=== PATIENT | female | born 1970 | race Caucasian/White ===

== ENCOUNTER → 2016-06-15 | Outpatient (CLI) | payer BC ==
[~2016-06-15] MED LIST: ACET325T95 PO; CLC100 PO; HYDR-3419 PO; LEVO50TA6 PO; LPR25 PO; NAPR-1169 PO; NRN100 PO; PANT40TA PO; PRLSR20 PO; RANI300T2 PO
--- NOTE | 2016-06-18 14:27 | MAMMOGRAPHY REPORT ---
BILATERAL DIGITAL SCREENING MAMMOGRAM TOMOSYNTHESIS WITH CAD: 06/15/2016 CLINICAL HISTORY: Routine screening. Patient has no complaints. TECHNIQUE: Breast tomosynthesis in addition to standard 2D mammography was performed. Current study was also evaluated with a Computer Aided Detection (CAD) system. COMPARISON: Comparison is made to exam dated: 05/18/2004 mammogram - [facility]. BREAST COMPOSITION: There are scattered areas of fibroglandular density in both breasts. FINDINGS: There is a 6 mm focal asymmetry seen within the left upper inner quadrant posteriorly, wh ich likely represents normal fibroglandular tissue, however, spot compression tomosynthesis views an d possible breast ultrasound are recommended for further evaluation. The remainder of both breasts demonstrate no suspicious masses, calcifications, or areas of architec tural distortion. IMPRESSION: ACR BI-RADS CATEGORY 0: INCOMPLETE EVALUATION: NEED ADDITIONAL IMAGING EVALUATION Left breast focal asymmetry, for which additional imaging evaluation is recommended. The patient wi ll be called to schedule an appointment. Approximately 10% of breast cancers are not detected with mammography. A negative mammographic repor t should not delay biopsy if a clinically suggestive mass is present. Valorie Justice M.D. /:06/15/2016 16:39:31 Front Office Associate: Mei Gómez, [facility] letter sent: Addl Imaging 0 BI-RADS Code: ACR BI-RADS Category 0: Incomplete Evaluation: Need Additional Imaging Evaluation
== END | disposition home or self-care (01) ==
LOC: C.MAMM 07:16
PROVIDERS: ATTEND Internal Medicine
DX: Z12.31 Encounter for screening mammogram for malignant neoplasm of breast (principal); R92.8 Other abnormal and inconclusive findings on diagnostic imaging of breast

== ENCOUNTER → 2016-06-28 | Outpatient (CLI) | payer BC ==
--- NOTE | 2016-06-28 15:07 | MAMMOGRAPHY REPORT ---
UNILATERAL LEFT DIGITAL DIAGNOSTIC MAMMOGRAM TOMOSYNTHESIS AND TARGETED LEFT ULTRASOUND: 06/28/2016 CLINICAL HISTORY: Callback from screening mammogram for left breast asymmetry. TECHNIQUE: Breast tomosynthesis in addition to standard 2D mammography was performed. Spot kristin berna left CC, MLO, and ML 2-D and tomosynthesis images were obtained. COMPARISON: Comparison is made to exams dated: 06/15/2016 mammogram and 05/18/2004 mammogram - [facility]. BREAST COMPOSITION: There are scattered areas of fibroglandular density in the left breast. FINDINGS: The previously described focal asymmetry seen within the left superior posterior breast a t approximately 11 to 12:00 partially effaces on the spot compression views, and has the appearance of normal fibroglandular tissue on the tomosynthesis images. No discrete mass or architectural dist ortion is noted on the tomosynthesis images. Targeted ultrasound was performed of the area of the mammographic asymmetry in the left 11 to 12:00 breast. No suspicious masses or other suspicious sonographic abnormalities are evident. No correla te for the asymmetry is seen. Incidentally noted in the left 11:00 periareolar region is an oval an echoic benign simple cyst which measures 4 x 4 mm. IMPRESSION: ACR-BI-RADS CATEGORY 3: PROBABLY BENIGN, TARGETED ULTRASOUND ACR-BI-RADS CATEGORY 3: AL OBABLY BENIGN Focal asymmetry in the left 11 to 12:00 breast is less prominent on the additional views, without co rresponding sonographic abnormality evident. The asymmetry is probably benign and likely represents an island of normal fibroglandular tissue. Recommend follow-up diagnostic tomosynthesis mammograms of the left breast and possible ultrasound in 6 months to confirm stability. The patient has been verbally notified of the results. Approximately 10% of breast cancers are not detected with mammography. A negative mammographic repor t should not delay biopsy if a clinically suggestive mass is present. Valorie Justice M.D. /:06/28/2016 08:30:54 Product Safety Tester: Mei Gómez, [facility] letter sent: Follow Up Recommended 3 BI-RADS Code: ACR-BI-RADS Category 3: Probably Benign Ultrasound BI-RADS: ACR-BI-RADS Category 3: P robably Benign
== END | disposition home or self-care (01) ==
LOC: C.MAMM 08:04
PROVIDERS: ATTEND Internal Medicine
DX: N64.89 Other specified disorders of breast (principal)

== ENCOUNTER → 2016-08-01 | Outpatient (CLI) | payer BC ==
--- NOTE | 2016-08-01 14:01 | DIAGNOSTIC IMAGING REPORT ---
CHEST CT WITHOUT CONTRAST CT DOSE: 191.29 mGycm HISTORY: Pulmonary nodule. Follow-up. TECHNIQUE: Multiaxial CT images of the chest were performed without contrast. COMPARISON: Chest CT 02/28/2015. Chest CT 05/03/2014. FINDINGS: Continued increase in size in the 11 x 8 mm nodule within the left upper lobe. This previous measured 9 x 6 mm. Emphysema. No pneumothorax or pleural effusions. Stable 3 mm nodule within the left lower lobe on image 159. Therefore, this is likely benign. The central airways are patent. No suspicious lytic or blastic osseous lesions. The liver, spleen, and visualized adrenal glands are unremarkable. Normal caliber thoracic aorta. No mediastinal or hilar lymphadenopathy. The heart is normal in size. IMPRESSION: 1. Continued increase in size in the 11 x 8 mm left upper lobe nodule. Therefore, this is consistent with a neoplasm until proven otherwise. 2. Emphysema. Electronically signed by: Mike Escalante M.D. 08/01/2016 2:00 PM Dictated Date/Time: 08/01/2016 1:53 PM
== END | disposition home or self-care (01) ==
LOC: C.CTS 13:40
PROVIDERS: ATTEND Internal Medicine Pulmonary Disease
DX: R91.1 Solitary pulmonary nodule (principal); J43.9 Emphysema, unspecified

== ENCOUNTER → 2016-08-22 | Outpatient (CLI) | payer BC ==
--- NOTE | 2016-08-22 10:00 | DIAGNOSTIC IMAGING REPORT ---
PET/CT HISTORY: PULMONARY NODULE TECHNIQUE: PET/CT was performed from the base of the skull through the pelvis following the intravenous administration of 15.3 mCi of F18-FDG. Non-contrast CT imaging was performed over the same range without breath-hold for attenuation correction of PET images and anatomic correlation, but not for primary interpretation as it is not of standard diagnostic quality. CT DOSE: COMPARISON: Chest CT 08/01/2016. FINDINGS: HEAD AND NECK: There is no FDG-avid disease or significant lymphadenopathy in the imaged portions of the head and the neck. CHEST: Emphysema. There is again noted and 11 x 8 mm nodule within the left upper lobe/lingula. This is not demonstrate abnormal FDG uptake. No FDG avid or enlarged mediastinal or hilar lymph nodes. No pleural fusions. ABDOMEN/PELVIS: Below the diaphragm, tracer is distributed physiologically in the gastrointestinal and genitourinary tracts. There is no significant lymphadenopathy and no FDG-avid disease. MUSCULOSKELETAL: There is no FDG-avid or destructive bone lesion. IMPRESSION: An 11 x 8 mm nodule within the left upper lobe/lingula. This does not demonstrate abnormal FDG uptake. However, a low-grade neoplasm cannot be entirely excluded. Electronically signed by: Mike Escalante M.D. 08/22/2016 9:58 AM Dictated Date/Time: 08/22/2016 9:46 AM
== END | disposition home or self-care (01) ==
LOC: C.PET 07:12
PROVIDERS: ATTEND Internal Medicine Pulmonary Disease
DX: R91.1 Solitary pulmonary nodule (principal); J43.9 Emphysema, unspecified

== ENCOUNTER → 2016-08-28 | Outpatient (CLI) | payer BC ==
[2016-08-28 11:01] LABS: ARTERIAL BLD GAS O2 SATURATION 96.7 % (90-95); ARTERIAL BLOOD GAS BASE EXCESS 0.4 mEq/L (-9-1.8); ARTERIAL BLOOD GAS HCO3 23 mmol/L (19-24); ARTERIAL BLOOD GAS PO2 85 mm/Hg (80-95); ARTERIAL BLOOD GAS pH 7.48 (7.35-7.45)
[2016-08-28 11:04] LABS: ALLEN TEST POS (POS); O2 ADMINISTRATION ROOM AIR
[2016-08-28 11:30] LABS: THYROID STIMULATING HORMONE 3.93 uIu/ml (0.300-4.500)
== END | disposition home or self-care (01) ==
LOC: C.LAB 10:05
PROVIDERS: ATTEND Internal Medicine Pulmonary Disease
DX: E03.9 Hypothyroidism, unspecified (principal); J34.2 Deviated nasal septum

== ENCOUNTER → 2016-09-03 | Outpatient (CLI) | payer BC ==
[2016-09-03 13:40] LABS: BASO ABS # 0.08 K/uL (0-0.2); COMPLETE YES; EOS % 0.8 %; HEMATOCRIT 39.2 % (37-47); IG% 0.2 %; LYMPH ABS # 2.34 K/uL (1.2-3.4); MEAN CELL VOLUME 80.2 fL (80-100); MEAN CORPUSCULAR HEMOGLOBIN 27.4 pg (25-34); MEAN CORPUSCULAR HGB CONC 34.2 g/dl (32-36); MEAN PLATELET VOLUME 8.8 fL (7.4-10.4); MONO % 6.3 %; NEUT % 63.7 %; PLATELET COUNT 306 K/uL (130-400); RED BLOOD COUNT 4.89 M/uL (4.2-5.4); WHITE BLOOD COUNT 8.35 K/uL (4.8-10.8)
[2016-09-03 14:11] LABS: BLOOD UREA NITROGEN 6 mg/dl (7-18); BUN/CREATININE RATIO 6.9 (10-20); CARBON DIOXIDE 26 mmol/L (21-32); CHLORIDE 106 mmol/L (98-107); CREATININE 0.85 mg/dl (0.60-1.20); GLUCOSE 83 mg/dl (70-99); POTASSIUM 3.7 mmol/L (3.5-5.1); SODIUM 141 mmol/L (136-145)
== END | disposition home or self-care (01) ==
LOC: C.LAB 12:17
PROVIDERS: ATTEND Surgery
DX: C34.90 Malignant neoplasm of unspecified part of unspecified bronchus or lung (principal)

== ENCOUNTER 2016-10-03 05:14 | Inpatient (IN) | payer BC ==
[2016-09-11 15:10] VITALS: BMI 27.0
[~2016-10-03] VITALS: Ht 152.4 cm; Wt 63.2 kg
[2016-10-03] VITALS (10 sets, daily range): BP systolic 147–162; BP diastolic 95–105; PULSE 69–104; TEMP 36.6–37; O2SAT 93–99; Ht 152.4 cm; Wt 63.2 kg
[~2016-10-03 05:14] MED LIST changes: -ACET325T95 PO; -CLC100 PO; -HYDR-3419 PO; -LPR25 PO; -NRN100 PO; -PRLSR20 PO
[2016-10-03] MEDS ORDERED: LACTATED RINGER'S 1000ML 1,000 ML IV SCH (06:00)
[2016-10-03] MEDS ORDERED: FENTANYL CITRATE INJ 50 MCG/1 ML 2 ML VIAL ONE ×4 (07:01→11:41)
[2016-10-03] MEDS ORDERED: SODIUM CHLORIDE 0.9% PF 50 ML VIAL ONE (07:02)
[2016-10-03] MEDS ORDERED: KETAMINE HCL INJ 50 MG/ML 10 ML VIAL ONE (07:02)
[2016-10-03] MEDS ORDERED: MIDAZOLAM HCL 1 MG/ML 2ML VIAL ONE (07:02)
[2016-10-03] MEDS ORDERED: BUPIVACAINE LIPOSOME 1/3% 266 MG/20 ML VIAL INFIL ONE (07:03)
--- NOTE | 2016-10-03 07:08 | History & Physical Bridge Note ---
H&P Re-Evaluation Bridge Note: I have examined the patient, reviewed the History & Physical and in the interval since the performance of the History & Physical I have noted the following changes of clinical significance: No changes noted
[2016-10-03] MEDS ORDERED: ROCURONIUM BROMIDE 10 MG/ML 5 ML VIAL ONE (08:28)
[2016-10-03] MEDS ORDERED: CEFAZOLIN SOD 1 GM VIAL ONE (08:28)
[2016-10-03] MEDS ORDERED: PROPOFOL IV EMULSION 10 MG/ML 20 ML VIAL IV ONE (08:28)
[2016-10-03] MEDS ORDERED: HYDROmorphone INJ 1 MG/ML SYR IV PRN (08:30)
[2016-10-03] MEDS ORDERED: ATROPINE SULFATE 0.1 MG/ML 5ML SYR IV PRN (08:30)
[2016-10-03] MEDS ORDERED: ONDANSETRON INJ 2 MG/ML 2 ML VIAL IV PRN ×2 (08:30→12:00)
[2016-10-03] MEDS ORDERED: EpHEDrine SULFATE INJ 50 MG/ML AMP IV PRN (08:30)
[2016-10-03] MEDS ORDERED: FENTANYL CITRATE INJ 50 MCG/1 ML 2 ML VIAL IV PRN (08:30)
[2016-10-03] MEDS ORDERED: FLOSEAL HEMOSTATIC MATRIX 10ML TOP ONE (11:37)
[2016-10-03] MEDS ORDERED: GLYCOPYRROLATE INJ 0.2 MG/ML VIAL ONE ×2 (11:39→11:44)
[2016-10-03] MEDS ORDERED: NEOSTIGMINE METHYLSULFATE 5 MG/5 ML SYR ONE (11:39)
[2016-10-03] MEDS ORDERED: ONDANSETRON INJ 2 MG/ML 2 ML VIAL ONE (11:39)
[2016-10-03] MEDS ORDERED: EpHEDrine SULFATE INJ 50 MG/ML AMP ONE (11:39)
[2016-10-03] MEDS ORDERED: DEXAMETHASONE SOD INJ 4 MG/ML VIAL ONE (11:39)
[2016-10-03] MEDS ORDERED: LABETALOL HCL IV 5 MG/ML 20ML IV ONE (11:42)
--- NOTE | 2016-10-03 12:19 | DIAGNOSTIC IMAGING REPORT ---
CHEST ONE VIEW PORTABLE CLINICAL HISTORY: CHERELLE postoperative evaluation COMPARISON STUDY: 05/20/2014. CT chest dated 08/01/2016 FINDINGS: Operative changes consistent with resection of the left upper lung nodular density. Left-sided chest tube in position. No significant postprocedural pneumothorax. Atelectasis right base. Mild stable cardia megaly. IMPRESSION: 1. Interval left upper lobe resection with no significant postprocedural pneumothorax. 2. Atelectasis right base. Electronically signed by: Howie Courtney M.D. 10/03/2016 12:18 PM Dictated Date/Time: 10/03/2016 12:16 PM
--- NOTE | 2016-10-03 12:41 | Anesthesiology Progress Note ---
Anesthesia Post Op Note Date & Time Oct 03, 2016 at 12:40 Vital Signs Pain Intensity: 0 Vital Signs Past 12 Hours Date Time Temp Pulse Resp B/P (MAP) Pulse Ox O2 Delivery O2 Flow Rate FiO2 10/03/16 12:35 78 18 107/75 92 Oxymask 3 10/03/16 12:25 82 18 104/79 96 Oxymask 10 10/03/16 12:15 77 18 170/98 96 Oxymask 15 10/03/16 12:05 73 18 178/106 93 Oxymask 15 10/03/16 11:58 36.1 70 18 178/108 93 Oxymask 15 10/03/16 05:44 36.6 76 18 155/95 (115) 95 Room Air Notes Mental Status: alert / awake / arousable, participated in evaluation Pt Amnestic to Procedure: Yes Nausea / Vomiting: adequately controlled Pain: adequately controlled Airway Patency, RR, SpO2: stable & adequate BP & HR: stable & adequate Hydration State: stable & adequate Anesthetic Complications: no major complications apparent
[2016-10-03] MEDS ORDERED: ACETAMINOPHEN 1000 MG/100 ML IV IV ONE ×2 (12:44→12:45)
--- NOTE | 2016-10-03 13:13 | [facility] Operative Report ---
Operative Report Date of Service Oct 03, 2016. Operative Report Preoperative diagnosis: Left upper lobe nodule in a patient with a history of cigarette smoking Postoperative diagnosis: Hamartoma left upper lobe Procedure: Robotic left upper lobectomy Mediastinal lymph node sampling Surgeon: Zan Arzate M.D. [employer] surgeon: Mich SHAFFER Procedure: This a 46-year-old smoker who had a small nodule in her left upper lobe. It was solid. It had grown minimally. I long talk with the patient and her in the office earlier this month. I've explained the only way we could tell this was not a cancer pressure be to remove it given to the pathologist. Having said that I hope to do a wedge resection however it was between the left upper lobe and lingula and a segmentectomy would not have sufficed. In addition was not in an area that was good for wedge resection. I discussed this in detail. Her lung function was excellent. I stated we may proceed directly with a lobectomy depending on what we found. On 10/03/2016 I took the patient operating room and an uncomplicated robotic- assisted thoracoscopic left upper lobectomy. I had difficulty finding this nodule and again it was not any good area for wedge resection. This reason I proceeded with a left upper lobectomy which appeared to be rather straightforward. Frozen section showed this to be a hamartoma. She had negligible blood loss. She was extubated in the room. She tolerated very well. Details of procedure: Patient was brought to operating room and laid in supine position. Gen. anesthesia was induced and endotracheal intubation was performed a double-lumen tube. After placing the patient in the right lateral decubitus position and calling appropriate timeout administering antibiotics patient was prepped and draped in usual sterile fashion. 5 different port sites were placed in the eighth interspace started posteriorly and working anteriorly. Upon entering the pleural cavity insufflating carbon dioxide to be seen there were very little adhesions although the left upper lobe was adhesed to the chest wall which was easily taken down with cautery. Then attempted to palpate this mass but it was small and within the lobe itself. It appeared to be rather straightforward lobe I elected to proceed with a lobectomy. Attention was turned posteriorly and I dissected out the posterior fissure and then the posterior mediastinum. A level X node was biopsied. The artery was dissected free and I then was able to complete the fissure posteriorly. This brought us down to the continuation pulmonary artery and I saw the lingula and additional branches more proximally. Upon turning to the anterior fissure there was a a parent arterial supply. The artery to the lower lobe had 2 branches that went to the lingula. I carefully dissected this off and was able to staple these 2 small branches. This and the anterior fissure nicely and after taking this down further I came upon the lingual branch of the artery. Then dissected out the level X and level V areas as well as multiple level XI and level XII nodes. After dissecting out the artery to the left upper lobe including the lingular branch attention was turned back towards the arteries. Endo JERARDO stapler was used to fire across the lingular branch as well as the more proximal branches. This left only apical anterior branch and by pulling the lobe posteriorly and inferiorly was able to dissect this out quite nicely with the robot in fire Endo JERARDO stapler. Attention was then turned towards the vein anteriorly entrain the upper lobe. After getting around this with a vessel loop retracting upward Endo JERARDO stapler was fired across this. This left only the bronchus. Lymph nodes were swept up with an Endo JERARDO stapler was fired across this. Attention was then turned towards the posterior thoracic cavity and 266 mg of X Oanh mix with 50 mL of normal saline sorry 60 mL of normal saline and used anesthetize second to 11th rib by performing a rib block. This was done intrathoracic. The Endobag was then delivered through the assistant shift supervisor port and the left upper lobe was placed in this bag. The Endobag was then removed and I had to open the assistant shift supervisor's port up another's 2 cm or so to get this mass out. It was sent to the lab. Chest shows normal saline really wasn't much of an air leak. Blood loss. 24 Slovak chest tube was placed through the camera port and directed towards the apex. It was sutured in place with heavy silk suture. The deeper muscle layers of all ports were closed with 0 Vicryl and 4 Monocryl suture in a running subcutaneous fashion approximating the skin edges. Patient was seen have very little in the way of an air leak. She tolerated the procedure very well was extubated in the room. She transported to postanesthesia care unit in stable condition. I attest to the content of the Intraoperative Record and any orders documented therein. Any exceptions are noted below.
[2016-10-03] MEDS: D5W AND 1/2NSS 1,000 ML IV SCH ×2 (13:15→21:17)
[2016-10-03] MEDS ORDERED: PNEUMOCOCCAL ADMINISTRATION CHARGE ONE (13:45)
[2016-10-03] MEDS ORDERED: PNEUMOCOCCAL POLYSACCHARIDES 25 MCG/0.5 ML VIAL/SYR IM. ONE (13:45)
[2016-10-03] MEDS: METOCLOPRAMIDE HCL INJ 5 MG/ML 2 ML VIAL IV. SCH ×2 (14:26→21:11)
[2016-10-03] MEDS: KETOROLAC TROMETHAMINE 15 MG/ML VIAL IV. SCH ×2 (14:26→21:11)
[2016-10-03] MEDS ORDERED: ARTIFICIAL TEARS OP OINT 3.5 GM TUBE OPR PRN (15:15)
--- NOTE | 2016-10-03 15:24 | Anesthesiology Progress Note ---
Anesthesia Progress Note Date of Service Oct 03, 2016. Progress Notes Was called by patient's floor nurse as patient c/o right eye "scratch". I went to patient's bedside and she stated she had right eye pain that was described as feeling as if her eye had been scratched. I examined the eye and it was mildly red in corner of eye but no other abnormalities were noted. She denied any vision changes and said the pain was not severe. Patient did not endorse this eye pain in PACU but noticed it when she was more awake on the floor. I explained this could either be an abrasion or drying injury and they usually heal in 24-72 hours timeframe. At this point, I wrote for TID erythromycin ointment to be placed in her right eye along with refresh eye drops. Anesthesia provider will f/u with patient tomorrow as well and both patient and her family members informed to contact nurse if she noted any worsening eye pain, vision problems or other concerning symptoms. If pain is not improved by tomorrow afternoon or her symptoms worsen, optho service should be formally consulted.
[2016-10-03] MEDS: ERYTHROMYCIN OP OINT 1 GM PKT OPR SCH ×2 (15:31→21:12)
[2016-10-03] MEDS ORDERED: CEFAZOLIN IV 2,000 MG in DEXTROSE 5% 50ML 100 ML IV SCH (16:00)
[2016-10-03] MEDS: CEFAZOLIN IV 2,000 MG in DEXTROSE 5% 50ML 50 ML IV SCH ×2 (16:09→23:59)
[2016-10-03] MEDS: MoRPHine SULFATE 2 MG/ML CARP IV PRN (16:18)
[2016-10-03] MEDS ORDERED: NURSING VERBAL MED ORDER ONE (19:00)
[2016-10-03] MEDS: OXYCODONE HCL IR 5 MG TAB (IMMEDIATE RELEASE) PO PRN (20:11)
[2016-10-03] MEDS: ACETAMINOPHEN IV 1,000 MG in EMPTY BAG 0 ML IV SCH (21:07)
[2016-10-03] MEDS: METOPROLOL TARTRATE 25 MG TAB PO SCH (21:09)
[2016-10-03] MEDS: RANITIDINE HCL 150 MG TAB PO SCH (21:11)
[2016-10-03] MEDS: DOCUSATE SODIUM 100 MG CAP PO SCH (21:12)
[2016-10-04] VITALS (9 sets, daily range): BP systolic 142–167; BP diastolic 84–102; PULSE 71–82; TEMP 36.8–37.1; O2SAT 80–98
[2016-10-04] MEDS: KETOROLAC TROMETHAMINE 15 MG/ML VIAL IV. SCH ×3 (05:34→21:02)
[2016-10-04] MEDS: LEVOTHYROXINE 50 MCG TAB PO SCH (05:34)
[2016-10-04] MEDS: ACETAMINOPHEN IV 1,000 MG in EMPTY BAG 0 ML IV SCH (05:34)
[2016-10-04] MEDS: METOCLOPRAMIDE HCL INJ 5 MG/ML 2 ML VIAL IV. SCH (05:34)
[2016-10-04 06:17] LABS: BASO % 0.3 %; BASO ABS # 0.04 K/uL (0-0.2); COMPLETE YES; EOS % 0.1 %; HEMATOCRIT 38.9 % (37-47); IG% 0.2 %; LYMPH % 8.8 %; LYMPH ABS # 1.23 K/uL (1.2-3.4); MEAN CORPUSCULAR HEMOGLOBIN 27.1 pg (25-34); MEAN CORPUSCULAR HGB CONC 33.4 g/dl (32-36); MEAN PLATELET VOLUME 9.1 fL (7.4-10.4); MONO % 10.1 %; NEUT % 80.5 %; PLATELET COUNT 312 K/uL (130-400)
[2016-10-04 06:40] LABS: PROTHROMBIN TIME (PATIENT) 10.6 SECONDS (9.0-12.0)
[2016-10-04 06:52] LABS: BUN/CREATININE RATIO 12.8 (10-20); CALCIUM 8.8 mg/dl (8.5-10.1); CREATININE 0.82 mg/dl (0.60-1.20); POTASSIUM 3.9 mmol/L (3.5-5.1)
--- NOTE | 2016-10-04 07:02 | DIAGNOSTIC IMAGING REPORT ---
CHEST ONE VIEW PORTABLE CLINICAL HISTORY: CHERELLE postoperative evaluation COMPARISON STUDY: 10/03/2016 FINDINGS: Slight pullback of the patient's left-sided chest tube. No significant postprocedural pneumothorax. Slight unchanging left hilar fullness. Minimal atelectasis right base improved IMPRESSION: improved exam with improved aeration of both hemithoraces. No evidence for a postprocedural pneumothorax Electronically signed by: Howie Courtney M.D. 10/04/2016 7:01 AM Dictated Date/Time: 10/04/2016 7:00 AM
[2016-10-04] MEDS: METOPROLOL TARTRATE 25 MG TAB PO SCH ×2 (07:54→21:01)
[2016-10-04] MEDS: OXYCODONE HCL IR 5 MG TAB (IMMEDIATE RELEASE) PO PRN ×2 (08:15→16:23)
[2016-10-04] MEDS: D5W AND 1/2NSS 1,000 ML IV SCH (08:19)
[2016-10-04] MEDS: DOCUSATE SODIUM 100 MG CAP PO SCH ×2 (08:41→21:01)
[2016-10-04] MEDS: PANTOprazole SOD 40 MG TAB PO SCH (08:45)
[2016-10-04] MEDS: ERYTHROMYCIN OP OINT 1 GM PKT OPR SCH ×4 (08:50→21:00)
[2016-10-04] MEDS: ENOXAPARIN 40 MG/0.4 ML SYR SQ SCH (09:06)
--- NOTE | 2016-10-04 10:08 | Anesthesiology Progress Note ---
Anesthesia Post Op Note Date & Time Oct 04, 2016 at 10:08 Vital Signs Pain Intensity: 8.0 Vital Signs Past 12 Hours Date Time Temp Pulse Resp B/P (MAP) Pulse Ox O2 Delivery O2 Flow Rate FiO2 10/04/16 09:57 93 Nasal Cannula 2.0 10/04/16 07:45 93 Nasal Cannula 2.0 10/04/16 07:40 37.1 82 16 167/102 (123) 93 Nasal Cannula 2.0 10/04/16 03:58 36.8 78 16 146/95 (112) 98 Nasal Cannula 3.0 10/03/16 23:16 37.0 95 16 153/105 (121) 93 Nasal Cannula 3.0 Notes Mental Status: alert / awake / arousable, participated in evaluation Pt Amnestic to Procedure: Yes Nausea / Vomiting: adequately controlled Pain: adequately controlled Airway Patency, RR, SpO2: stable & adequate BP & HR: stable & adequate Hydration State: stable & adequate All issues resolving
[2016-10-04] MEDS: ACETAMINOPHEN 325 MG TAB PO SCH ×2 (12:04→17:14)
[2016-10-04] MEDS: MoRPHine SULFATE 2 MG/ML CARP IV PRN ×2 (12:53→18:19)
--- NOTE | 2016-10-04 14:40 | Anesthesiology Progress Note ---
Anesthesia Progress Note Date of Service Oct 04, 2016. Progress Notes followed up with patient this afternoon and she had complete resolution of her eye pain. denied vision changes. used artificial tears and erythromycin ointment overnight but did not require this today given that her eye felt to be back to normal. all questions answered.
--- NOTE | 2016-10-04 14:43 | Progress Note ---
Progress Note Date of Service Oct 04, 2016. Progress Note Thoracic surgery progress note Patient was seen this morning with her . She still on 2 L of oxygen with saturations in the low 90s. She's having some pain. She seems to be a bit sedated from the pain medicine. I had a long discussion about our findings yesterday in the operating room. She has been urinating frequently. The patient is afebrile. Her vital signs are stable this morning. Her blood pressure is been elevated with systolics in the 160s to 170s and the diastolic consistently over 100. This is while she was sleeping last night. I took the liberty of starting her on Lopressor 12.5 mg by mouth daily and she has done well with this the blood pressure and 140s over 80s today. On exam, her neck veins are not distended. Her lungs are clear. She has no drainage on her dressings. She is a regular rate and rhythm of her heart without a rub. Her abdomen is soft and nontender. Her sequential compression devices are in place on her lower extremities. She is awake alert and oriented with no focal deficits. Her chest x-ray shows no evidence of pneumothorax or pleural effusion. She has no air leak and her chest tube and she is draining very little. Her labs looked quite good. Assessment/plan: POD #1 status post robotic-assisted thoracoscopic surgery with left upper lobectomy. This appears to be a hamartoma. I explained to the patient and her before the surgery that as this mass was in the middle of her lobe was going to be difficult to perform a wedge resection. Her left upper lobe was rather small. She's done well with the surgery.
[2016-10-04] MEDS: RANITIDINE HCL 150 MG TAB PO SCH (21:01)
[2016-10-05] VITALS (11 sets, daily range): BP systolic 126–155; BP diastolic 84–104; PULSE 77–84; TEMP 36.7–37.3; O2SAT 91–96
[2016-10-05] MEDS: ACETAMINOPHEN 325 MG TAB PO SCH ×4 (00:20→17:36)
[2016-10-05] MEDS: KETOROLAC TROMETHAMINE 15 MG/ML VIAL IV. SCH (05:19)
[2016-10-05] MEDS: LEVOTHYROXINE 50 MCG TAB PO SCH (05:19)
[2016-10-05] MEDS: PANTOprazole SOD 40 MG TAB PO SCH (05:49)
--- NOTE | 2016-10-05 07:09 | DIAGNOSTIC IMAGING REPORT ---
CHEST ONE VIEW PORTABLE CLINICAL HISTORY: Left upper lobe pulmonary nodule COMPARISON STUDY: 10/04/2016 FINDINGS: A left-sided chest tube is again visualized. There is no pneumothorax. There is soft tissue prominence left hilum unchanged the prior study. There are persistent right infrahilar airspace opacities, likely atelectatic. IMPRESSION: Stable findings. No evidence of pneumothorax. Electronically signed by: Олег Gerber M.D. 10/05/2016 7:07 AM Dictated Date/Time: 10/05/2016 7:07 AM
[2016-10-05] MEDS: MoRPHine SULFATE 2 MG/ML CARP IV PRN (08:01)
--- NOTE | 2016-10-05 08:11 | Progress Note ---
Progress Note Date of Service Oct 05, 2016. Progress Note Thoracic surgery progress note: Patient was seen this morning. She is sitting up in a chair. Her chest tube has no air leak. She's draining very little. Her x-ray looks excellent. She is having an inordinate amount of pain. I removed her chest tube and her pain was improved but she still is not breathing well because of her pain. She' s not operating on spirometer coughing, to light. She is better with the chest tube output and I'm going to switch her over to Neurontin some of this may be neurogenic. Her breath sounds are fine in both lung rosario and her x-ray looks quite good. Her incisions are all clean. Assessment/plan: Postoperative day #2 status post robotic-assisted thoracoscopic left upper lobectomy. Final pathology is not out at this point however it appears this was a hamartoma. Pain control oxygenation going to be an issue. Saturations are 96% on 2 L this morning. I'm hopeful we can get her off the oxygen altogether. I discussed this in detail with the patient's .
--- NOTE | 2016-10-05 08:23 | DIAGNOSTIC IMAGING REPORT ---
CHEST ONE VIEW PORTABLE CLINICAL HISTORY: X-ray status post chest tube removal COMPARISON STUDY: 10/05/2016 FINDINGS: The left-sided chest tube has been removed. No pneumothorax is visualized. There is stable left hilar prominence. There are persistent right basilar airspace opacities likely atelectatic although an inflammatory process could appear similar. There is blunting of the right lateral costophrenic angle[ IMPRESSION: No evidence of pneumothorax status post left-sided chest tube removal Electronically signed by: Олег Gerber M.D. 10/05/2016 8:22 AM Dictated Date/Time: 10/05/2016 8:21 AM
[2016-10-05] MEDS: ERYTHROMYCIN OP OINT 1 GM PKT OPR SCH ×3 (09:00→21:00)
[2016-10-05] MEDS: METOPROLOL TARTRATE 25 MG TAB PO SCH ×2 (09:15→21:39)
[2016-10-05] MEDS: DOCUSATE SODIUM 100 MG CAP PO SCH ×2 (09:15→21:40)
[2016-10-05] MEDS: ENOXAPARIN 40 MG/0.4 ML SYR SQ SCH (09:16)
[2016-10-05] MEDS: GABAPENTIN 100 MG CAP PO SCH ×3 (09:16→21:38)
[2016-10-05] MEDS: OXYCODONE HCL IR 5 MG TAB (IMMEDIATE RELEASE) PO PRN ×2 (11:33→17:36)
[2016-10-05] MEDS: RANITIDINE HCL 150 MG TAB PO SCH (21:39)
[2016-10-06] MEDS: ACETAMINOPHEN 325 MG TAB PO SCH ×3 (00:22→12:29)
[2016-10-06 00:30] VITALS: BP 143/91; PULSE 79
[2016-10-06 04:22] VITALS: O2SAT 91
[2016-10-06] MEDS: OXYCODONE HCL IR 5 MG TAB (IMMEDIATE RELEASE) PO PRN (04:23)
[2016-10-06 04:36] VITALS: O2SAT 93
[2016-10-06] MEDS: LEVOTHYROXINE 50 MCG TAB PO SCH (05:40)
[2016-10-06 07:09] VITALS: BP 139/90; PULSE 85; TEMP 37; O2SAT 92
[2016-10-06] MEDS: ERYTHROMYCIN OP OINT 1 GM PKT OPR SCH (07:21)
[2016-10-06] MEDS: PANTOprazole SOD 40 MG TAB PO SCH (07:21)
[2016-10-06] MEDS: DOCUSATE SODIUM 100 MG CAP PO SCH (07:22)
[2016-10-06] MEDS: ENOXAPARIN 40 MG/0.4 ML SYR SQ SCH (07:22)
[2016-10-06] MEDS: GABAPENTIN 100 MG CAP PO SCH (07:24)
[2016-10-06] MEDS: METOPROLOL TARTRATE 25 MG TAB PO SCH (08:47)
[2016-10-06] MEDS ORDERED: ACET325T95 PO (08:52)
[2016-10-06] MEDS ORDERED: CLC100 PO (08:52)
[2016-10-06] MEDS ORDERED: NRN100 PO (08:52)
[2016-10-06] MEDS ORDERED: HYDR-3419 PO (08:52)
[2016-10-06] MEDS ORDERED: LPR25 PO (08:52)
--- NOTE | 2016-10-06 09:00 | Discharge Instructions ---
Discharge Instructions Date of Service Oct 06, 2016. Admission Reason for Admission: Solitary Pulmonary Nodule Discharge Discharge Diagnosis / Problem: Hamartoma Discharge Goals Goal(s): Learn about illness Activity Recommendations Activity Limitations: as noted below Lifting Limitations: none 1. You may remove dressings on Saturday, October 08, 2016. You may shower thereafter and clean incisions with soap and water. 2. Do not fly, SCUBA dive, or go in swimming pools until cleared to do so by Dr. Arzate. 3. Do not drive until cleared to do so by Dr. Arzate or if you are taking vicodin. 4. Do not take tylenol if using vicodin. . Instructions / Follow-Up Instructions / Follow-Up 1. Appointment with Dr. Arzate in 1 week. Office will call you with date and time of appointment. Go to hospital 1 hour before you appointment to have a chest x-ray taken. 2. Continue to ambulate and use you incentive spirometer when you return home. 3. See you primary care physician, Dr. Lehman within 2 weeks to discuss the retirement need of lopressor (blood pressure medication). 4. USe oxygen, 2 liters with nasal canula, during activity. The need for oxygen will be reassessed at your appointment with Dr. Arzate. Current Hospital Diet Patient's current hospital diet: Regular Diet Discharge Diet Recommended Diet: Regular Diet Procedures Procedures Performed: Robotic assisted thoracoscopic left upper lobectomy with mediastinal lymph node dissection Pending Studies Studies pending at discharge: no Medical Emergencies . Who to Call and When: Medical Emergencies: If at any time you feel your situation is an emergency, please call 911 immediately. . Non-Emergent Contact Non-Emergency issues call your: Surgeon Call Non-Emergent contact if: you have a fever, your pain is not controlled, wound has increased drainage . "Provider Documentation" section prepared by Boston Baldwin. . VTE Core Measure Inpt VTE Proph given/why not?: Enoxaparin (Lovenox)SQ
--- NOTE | 2016-10-06 09:10 | Discharge Summary ---
Discharge Summary Date of Service Oct 06, 2016. Discharge Summary Admission Date: Oct 03, 2016 at 11:51 Discharge Date: Oct 06, 2016 Discharge Disposition: Home Principal Diagnosis: Left Lung Hamartoma Problems/Secondary Diagnoses: 1. HTN 2. Tachycardia 3. Hypoxia Procedures: Left VATS with Left Upper Lobectomy Medication Reconciliation New Medications: Acetaminophen (Tylenol) 325 Mg Tab 650 MG PO Q6H PRN for Pain for 30 Days, 1 Refill Hydrocodon/Acetaminophen 5MG/300MG (Vicodin (5MG/300MG)) 1 Tab Tab 1-2 TAB PO Q4H PRN for Pain, #30 TAB Docusate Sodium (Docusate Sodium) 100 Mg Cap 100 MG PO BID for 30 Days, #60 CAP 1 Refill Gabapentin (Gabapentin) 100 Mg Cap 100 MG PO TID for 30 Days, #90 CAP 1 Refill Metoprolol Tartrate (Lopressor) 25 Mg Tab 12.5 MG PO BID for 30 Days, #30 TAB 1 Refill Continued Medications: Levothyroxine Sodium (Levothyroxine Sodium) 50 Mcg Tab 1 TAB PO QAM for 90 Days, #90 TAB 3 Refills Naproxen (Naprosyn) 500 Mg Tab 500 MG PO PRN, TAB Pantoprazole (Protonix) 40 Mg Tab 40 MG PO QAM, #30 TAB Ranitidine (Zantac) 300 Mg Tab 300 MG PO HS, TAB Discharge Exam All incisions healing well. Review of Systems: Constitutional: No fever, No chills Respiratory: No cough, No shortness of breath Cardiovascular: No chest pain Abdomen: No pain, No nausea, No vomiting, No constipation Physical Exam: General Appearance: WD/WN, no apparent distress ENT: hearing grossly normal Respiratory/Chest: lungs clear, normal breath sounds, no respiratory distress, no accessory muscle use Cardiovascular: regular rate, rhythm Abdomen / GI: non tender, soft Extremities: no calf tenderness Neurologic/Psychiatric: alert, oriented x 3 Hospital Course 46 year old female with left lung mass -pt. underwent Left VATS on (10/03/16) -preliminary path showed pulmonary hamartoma -post-op course uneventful: -pain control measures implemented with tylenol, toradol, oxycodone, morphine , neurontin -pt. encouraged to ambulate and use IS -chest tube managed and discontinued in appropriate fashion (removed POD #2): -no pneumothorax noted on post-pull CXR HYPOXIA -noted post-op -oxygen requirements decreased each day, however, 2-step exercise revealed pt. required 2 liters of oxygen with activity. HTN/TACHYCARDIA -noted post-op -pt. started on lopressor 12.5 mg BID with improved of HR and BP noted -pt. 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 Discharge Instructions Please refer to the electronic Patient Visit Report (Discharge Instructions) for additional information. Follow-Up 1. Dr. Encinas in 1 week with CXR--office will call with date and time of appointment. 2. Dr. Lehman, PCP, within 2 weeks to discuss terminal gauger supervisor need for HTN medications. Additional Copies To Sumeet Lehman M.D.
[2016-10-06 10:15] VITALS: BP 139/90; PULSE 85; TEMP 37; O2SAT 92
== END 2016-10-06 13:20 | disposition home or self-care (01) | DRG 830 ==
LOC: C.ACU 05:14 → C.MSW 11:51 → ENRESERV 12:32
PROVIDERS: ADMIT Surgery; ATTEND Surgery
PROC: 07B74ZX Excision of Thorax Lymphatic, Percutaneous Endoscopic Approach, Diagnostic (ICD-10-PCS; principal; 2016-10-04)
PROC: 0BTG4ZZ Resection of Left Upper Lung Lobe, Percutaneous Endoscopic Approach (ICD-10-PCS; principal; 2016-10-04)
DX: Q85.9 Phakomatosis, unspecified (principal); I10 Essential (primary) hypertension; R00.0 Tachycardia, unspecified; R09.02 Hypoxemia

== ENCOUNTER → 2016-10-15 | Outpatient (CLI) | payer BC ==
[~2016-10-15] MED LIST changes: +ACET325T95 PO; +CLC100 PO; +HYDR-3419 PO; +LPR25 PO; +NRN100 PO
--- NOTE | 2016-10-15 09:24 | DIAGNOSTIC IMAGING REPORT ---
CHEST 2 VIEWS ROUTINE CLINICAL HISTORY: R91.1 Solitary pulmonary [id number] nodule COMPARISON STUDY: 10/05/2016 FINDINGS: Small left apical pneumothorax with a 9 maximum pleural separation of 4 mm. Slight chronic fullness left aorta pulmonary window. Bibasilar atelectatic change. Slight blunting left lateral costophrenic angle. IMPRESSION: Very small left apical pneumothorax estimated at 4 mm maximum pleural separation. Bibasilar atelectatic change similar compared to the prior study. The above report was generated using voice recognition software. It may contain grammatical, syntax or spelling errors. Electronically signed by: Howie Courtney M.D. 10/15/2016 9:23 AM Dictated Date/Time: 10/15/2016 9:21 AM
== END | disposition home or self-care (01) ==
LOC: C.RAD 08:43
PROVIDERS: ATTEND Surgery
DX: R91.1 Solitary pulmonary nodule (principal)

== ENCOUNTER → 2017-01-02 | Outpatient (CLI) | payer BC ==
--- NOTE | 2017-01-02 15:47 | MAMMOGRAPHY REPORT ---
UNILATERAL LEFT DIGITAL DIAGNOSTIC MAMMOGRAM TOMOSYNTHESIS WITH CAD AND TARGETED LEFT ULTRASOUND: 01/2017 CLINICAL HISTORY: 46-year-old woman presents for follow-up in the left breast for a 6 mm focal asymme try in the 11:00 posterior breast. TECHNIQUE: Left breast tomosynthesis in addition to standard 2D mammography was performed. Current st udy was also evaluated with a Computer Aided Detection (CAD) system. COMPARISON: Comparison is made to exams dated: 06/28/2016 ultrasound, 06/28/2016 mammogram, 06/15/2016 ma mmogram, and 05/18/2004 mammogram - [facility]. BREAST COMPOSITION: There are scattered areas of fibroglandular density in the left breast. FINDINGS: A 6 mm focal asymmetry is again seen in the 11:00 posterior left breast, which appears tsacie lar in size and appearance dating back to 06/15/2016. Although this likely represents an island of g landular tissue, further evaluation with ultrasound was again performed. There is no associated arch itectural distortion or microcalcification. No other new suspicious findings are identified in the l eft breast. Targeted ultrasound was performed in the superior left breast, 11:00 axis. Sonographically normal ti ssue is seen without a discrete solid or cystic mass. IMPRESSION: ACR-BI-RADS CATEGORY 3: PROBABLY BENIGN, TARGETED ULTRASOUND ACR-BI-RADS CATEGORY 3: PRO BABLY BENIGN Stable 6 mm focal asymmetry in the 11:00 posterior left breast, without suspicious sonographic correl ate. This most likely represents an island of normal glandular tissue, but long-term stability is no t demonstrated mammographically. Therefore, another short interval follow-up left diagnostic tomosyn thesis mammogram and possible repeat ultrasound is recommended in 6 months. Annual right mammography will also be due at that time. These results and recommendations were discussed with the patient at the time of the exam. Approximately 10% of breast cancers are not detected with mammography. A negative mammographic report should not delay biopsy if a clinically suggestive mass is present. Brea Rush M.D. ay/:01/02/2017 14:45:18 Spray Gun Striper: Mei Lynn RT(R)(M), [facility] letter sent: Follow Up Recommended 3 BI-RADS Code: ACR-BI-RADS Category 3: Probably Benign Ultrasound BI-RADS: ACR-BI-RADS Category 3: Pr obably Benign
== END | disposition home or self-care (01) ==
LOC: C.MAMM 13:54
PROVIDERS: ATTEND Internal Medicine
DX: N64.9 Disorder of breast, unspecified (principal)

== ENCOUNTER → 2017-01-14 | Outpatient (CLI) | payer BC ==
--- NOTE | 2017-01-14 08:55 | DIAGNOSTIC IMAGING REPORT ---
CHEST 2 VIEWS ROUTINE CLINICAL HISTORY: R91.1 Solitary pulmonary [id number] nodule COMPARISON STUDY: 10/15/2016 FINDINGS: Improved exam compared to the prior study. Lungs are considered clear. No significant pneumothorax. Diaphragms smooth. IMPRESSION: No acute process. Lungs are now considered clear. No significant pneumothorax. The above report was generated using voice recognition software. It may contain grammatical, syntax or spelling errors. Electronically signed by: Howie Courtney M.D. 01/14/2017 8:54 AM Dictated Date/Time: 01/14/2017 8:53 AM
== END | disposition home or self-care (01) ==
LOC: C.RAD 08:25
PROVIDERS: ATTEND Surgery
DX: R91.1 Solitary pulmonary nodule (principal)

== ENCOUNTER → 2017-07-10 | Outpatient (CLI) | payer OTHER ==
[~2017-07-10] MED LIST changes: -ACET325T95 PO; -HYDR-3419 PO; +TYLOTC325 PO
--- NOTE | 2017-07-10 15:14 | MAMMOGRAPHY REPORT ---
BILATERAL DIGITAL DIAGNOSTIC MAMMOGRAM TOMOSYNTHESIS WITH CAD AND TARGETED LEFT ULTRASOUND: 07/10/2017 CLINICAL HISTORY: Six-month follow-up of left breast asymmetry. Due for routine mammography of the r ight breast. TECHNIQUE: Breast tomosynthesis in addition to standard 2D mammography was performed. Current study was also evaluated with a Computer Aided Detection (CAD) system. Bilateral CC and MLO 2D and tomosyn thesis images were obtained. COMPARISON: Comparison is made to exams dated: 01/02/2017 ultrasound, 01/02/2017 mammogram, 06/28/2016 ultrasound, 06/28/2016 mammogram, 06/15/2016 mammogram, and 05/18/2004 mammogram - [facility]. BREAST COMPOSITION: There are scattered areas of fibroglandular density in both breasts. FINDINGS: The previously described asymmetry seen within the left 11:00 breast is stable dating back to at least the May 2016 exam and has the appearance of normal fibroglandular tissue on the tomosyn thesis images. The asymmetry is benign and felt to represent normal fibroglandular tissue. There is a partially circumscribed and partially obscured 8 mm mass within the left lateral breast for which ultrasound was performed. The remainder of both breasts are stable compared to prior exams, without suspicious masses, calcifications, or areas of architectural distortion noted. Mildly prominent left axillary lymph node is stable dating back to the May 2016 exam. Targeted ultrasound was performed of the left lateral breast in the region of the mammographic mass. In the left breast at 3:00 periareolar region, there is a circumscribed anechoic mass with a few thi n internal septations, measuring 7 x 8 x 4 mm. This corresponds with the mammographic mass and is co nsistent with a benign cyst cluster. IMPRESSION: ACR BI-RADS CATEGORY 2: BENIGN, TARGETED ULTRASOUND ACR BI-RADS CATEGORY 2: BENIGN 1. The focal asymmetry in the left 11:00 breast is stable dating back to the May 2016 exam and is b enign and compatible with normal fibroglandular tissue. 2. Benign 8 mm cyst cluster in the left 3:00 periareolar breast on ultrasound, which corresponds wit h a mammographic mass. There is no mammographic or targeted sonographic evidence of malignancy. A 1 year screening mammogram is recommended. The patient has been verbally notified of the results. Approximately 10% of breast cancers are not detected with mammography. A negative mammographic report should not delay biopsy if a clinically suggestive mass is present. Valorie Justice M.D. ah/:07/10/2017 14:20:02 Home Health Care Coordinator: Mei PEREZ)(Krista), [facility] letter sent: Normal 1/2 BI-RADS Code: ACR BI-RADS Category 2: Benign Ultrasound BI-RADS: ACR BI-RADS Category 2: Benign
== END | disposition home or self-care (01) ==
LOC: C.MAMM 13:48
PROVIDERS: ATTEND Internal Medicine
DX: N64.9 Disorder of breast, unspecified (principal); N60.12 Diffuse cystic mastopathy of left breast

== ENCOUNTER → 2017-10-10 | Outpatient (CLI) | payer OTHER ==
[~2017-10-10] MED LIST changes: +HYDR-5688 PO; -NAPR-1169 PO; +NAPR-22 PO
== END | disposition home or self-care (01) ==
LOC: C.CPL 14:03
PROVIDERS: ATTEND Surgery
DX: Z01.818 Encounter for other preprocedural examination (principal)

== ENCOUNTER 2024-12-07 09:04 | Observation (INO) ==
--- NOTE | 2024-12-01 15:08 | Anesthesiology Consultation ---
Date of Service December 01, 2024 Assessment & Plan (1) Encounter for pre-operative examination: Chart Review Chart Review: Acceptable Risk for Surgery and Patient NOT seen in Pre Admission Testing -Infectious Disease screening: Per PAT nursing assessment on 12/01/24. No known infectious disease contacts in past 10 days or current infectious disease symptoms. No recent travel outside the country. Allergy visit 05/30/23= "Chronic idiopathic urticaria... Surgery is not an unusual trigger for patients with idiopathic urticaria. It could be triggered either by immune stimulation as part of normal wound healing or narcotic pain medications, or some combination of both. She has blood work to rule out most of the other causes of urticaria, and so no other diagnostic testing is needed. We discussed that if she ever needs to have another surgical procedure that I would recommend premedicating her starting a week before the procedure and then as soon as she can resume taking oral medications she would resume using a daily antihistamine. I would recommend that we use hydroxyzine 25 mg at bedtime and this should be effective at preventing hives related to surgery. If she does get any more outbreaks of hives at any point, I recommend that she start with cetirizine 20 mg if the hives are mild to moderate. If she gets moderate to severe outbreaks, that she should use hydroxyzine 25 to 50 mg as needed..." (Spoke with patient on 12/01/24- will be starting hydroxyzine in the evening of 12/01/24- will continue thru evening prior to surgery and patient will check with surgeon if she can resume post op) Right breast partial mastectomy 02/23/24= Done under [facility] with LMA #4 I gel. Easy, atraumatic, good seal History Surgery Operation Date: 12/07/24 09:45 Proposed Procedures p Robotic assisted Laparoscopic Cholecystectomy - Palmira Lowry DO Height/Weight Height: 5 ft Weight: 63.049 kg Allergies Allergy/AdvReac Type Severity Reaction Status Date / Time albuterol sulfate AdvReac Intermediate sore throat Uncoded 11/12/24 11:15 Medications Home Medications Medication Instructions Recorded Confirmed Last Taken losartan 50 mg tablet 50 mg PO QAM 12/12/21 12/01/24 Unknown pantoprazole 40 mg tablet,delayed 40 mg PO BID 12/12/21 12/01/24 04/25/23 04:30 release hydrochlorothiazide 25 mg tablet 25 mg PO QAM 04/04/23 12/01/24 Unknown levothyroxine 112 mcg tablet 88 mcg PO QAM 02/11/24 12/01/24 Unknown famotidine 20 mg tablet 20 mg PO BID 11/18/24 12/01/24 Unknown tiotropium 2.5 mcg-olodaterol 2.5 2 puff inhalation QAM 11/18/24 12/01/24 Unknown mcg/actuation mist for inhalation (Stiolto Respimat) albuterol sulfate 90 mcg/actuation 2 puff inhalation QID PRN sob 12/01/24 12/01/24 Unknown aerosol inhaler hydroxyzine HCl 25 mg tablet 25 mg PO HS PRN Rash 12/01/24 12/01/24 Unknown Past Medical History Medical History (Updated 12/01/24 @ 15:18 by Vicky Chandra PA-C) Adenomyomatosis of gallbladder Rey esophagus Centrilobular emphysema Chronic idiopathic urticaria - Gets mild diffuse rash after surgeries (usually 10 days after surgery) per patient (denies any swelling or airway issues) - Seen by allergy 05/30/23- feels surgery is not an unusual trigger- could be trigged by immune stimulation, pain medications or combination- retail store assistant prescribed hydroxyzine to take preop and post op Chronic obstructive pulmonary disease uses daily and rescue inhalers; follows with [facility] pulm GERD (gastroesophageal reflux disease) Hx of thyroiditis Hypertension Hypothyroidism on medication Migraine occasional Osteoarthritis Osteoporosis 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 Past Family History Family History Sister Family history of diabetes mellitus Diabetes Mother Family history of diabetes mellitus Diabetes Hypertension Grandmother (Paternal) Family hx of colon cancer Aunt Breast cancer Cancer Grandmother Cancer Colorectal cancer Diabetes Father Hypertension Stroke Past Surgical History Surgical History H/O hand surgery 2019 R 4th and 5th prox phalanx fx; LMA#4 without issue H/O hernia repair (03/13/19) Open Recurrent Ventral Hernia Repair with Mesh Dr. Chaidez 03-13-19. Pt made ASA 3. LMA #4 at [facility]. no issues. History of anesthesia reaction "SLOW TO WAKE UP"; no hx of extended hospital stay History of esophagogastroduodenoscopy (EGD) History of herniorrhaphy History of hysterectomy TOTAL History of laparoscopy WITH LASER FOR ENDOMETRIOSIS History of lobectomy of lung LEFT UPPER LOBE FOR NODULE-BENIGN S/P lumpectomy, right breast (04/25/23) Right Breast Partial Mastectomy with Localization Using Angélica In Class Special Education Teacher Marker(Right) - Palmira Lowry DO Social History Smoking Status: Former smoker Do You Dip or Chew Tobacco: No Smoking End Date: quit ~13 yrs ago Hx Alcohol Use: Yes Alcohol type: hard liquor alcohol intake frequency: a few times a week Hx Substance Use: No substance use type: does not use Lab Results Anesthesia Preop Results Results Anesthesia Widget: WBC 7.3 Thousand/uL (3.8-10.8) 11/20/24 Hgb 13.0 g/dL (11.7-15.5) 11/20/24 Hct 40.2 % (35.0-45.0) 11/20/24 Plt 323 Thousand/uL (140-400) 11/20/24 Na 141 mmol/L (135-146) 11/20/24 K 4.1 mmol/L (3.5-5.3) 11/20/24 Cl 106 mmol/L (98-110) 11/20/24 CO2 29 mmol/L (20-32) 11/20/24 BUN 10 mg/dL (7-25) 11/20/24 Creat 0.76 mg/dL (0.50-1.03) 11/20/24 Glucose Level 113 mg/dL (65-139) 11/20/24 Testing Electrocardiogram Date: 11/13/24 NSR at 82bpm Left axis deviation When compared to EKG from Apr 15, 2023- no significant change was found per cardio Other Testing Chest CT 10/14/24= Interval left upper lobe resection. Emphysema. Unchanged small left lower lobe nodule, almost certainly benign given the long-term stability. Hiatal hernia
[~2024-12-07 09:04] MED LIST changes: +ATROPINE SULFATE 0.1 MG/ML 10ML SYR IV PRN; -CLC100 PO; +DEXAMETHASONE SOD INJ 4 MG/ML VIAL ONE; -HYDR-5688 PO; +HYDROmorphone INJ 1 MG/ML SYRINGE IV PRN; -LEVO50TA6 PO; +LIDOCAINE 2% 2 ML VIAL/AMP(20MG/ML) INFIL ONE; -LPR25 PO; +MIDAZOLAM HCL 1 MG/ML 2ML VIAL ONE; -NAPR-22 PO; -NRN100 PO; +ONDANSETRON INJ 2 MG/ML 2 ML VIAL IV PRN; +ONDANSETRON INJ 2 MG/ML 2 ML VIAL ONE; -PANT40TA PO; +PROMETHAZINE HCL 6.25 MG in SODIUM CHLORIDE 0.9% 50 ML IV PRN; +PROPOFOL IV EMULSION 10 MG/ML 20 ML VIAL IV ONE; -RANI300T2 PO; +ROCURONIUM BROMIDE 10 MG/ML 5 ML VIAL IV ONE; -TYLOTC325 PO
[2024-12-07] MEDS: LR 15ML/HR IV SCH (09:32)
[2024-12-07] MEDS: LACTATED RINGER'S 1,000 ML IV SCH (09:32)
--- NOTE | 2024-12-07 09:35 | History & Physical Bridge Note ---
Date of Service December 07, 2024 History & Physical Bridge Note I have examined the patient, reviewed the History & Physical and in the interval since the performance of the History & Physical I have noted the following changes of clinical significance: no changes noted. Patient presents for robotic cholecystectomy. The consent is on the chart.
[2024-12-07] MEDS ORDERED: diphenhydrAMINE 50 MG/ML VIAL ONE (10:21)
[2024-12-07] MEDS: BUPIVACAINE 0.5 % 5 MG/1 ML MPF 30ML VIAL ONE (10:35)
[2024-12-07] MEDS ORDERED: LABETALOL HCL IV 5 MG/ML 20ML IV ONE (10:43)
[2024-12-07] MEDS ORDERED: SUGAMMADEX SODIUM 200 MG/2 ML VIAL IV ONE (11:26)
--- NOTE | 2024-12-07 11:34 | Operative Report ---
[facility] Post Operative Report Pre & Post Diagnosis Operation Date: 12/07/24 10:20 Pre-Op Diagnosis: 1.Biliary Colic Symptoms 2. Adenomyomatosis of Gallbladder Post-Op Diagnosis: 1.Biliary Colic Symptoms 2. Adenomyomatosis of Gallbladder I identified the patient and participated in the time-out.: Yes Procedure Operation Date: 12/07/24 10:20 Actual Procedures p Robotic Assisted Laparoscopic Cholecystectomy(Not Applicable) - Palmira Lowry DO Surgeon Palmira Lowry DO Family And Divorce Legal Assistant DEENA Jay Estimated Blood Loss 5 Findings Consistent with Post-Op Diagnosis Specimens Gallbladder Anesthesia Type General Complications None Indications RUQ US 11/03/24: RUQ US revealed mild adenomyomatosis of the GB, no cholelithiasis. Funmi has a PMHx of GERD and Rey's esophagus but states this discomfort feels very different. She says this does not feel like her reflux pain. In addition to epigastric pain, she now has RUQ pain that radiates to her back. She also feels tenderness to palpation in this region when the area is pressed. Description of Procedure The patient was brought back to the operating room and placed on the operating room table in supine position. She was connected to cardiac and oxygen monitoring, supplemental O2 was provided and SCDs were applied to bilateral lower extremities. The patient was administered general anesthesia and a secure airway was established. The abdomen was prepped and draped in typical sterile fashion and a timeout was conducted. Local anesthetic was used anesthetize the skin and subcutaneous tissues prior to making all incisions and all incisions were made with an 11 blade. Intra- abdominal access was gained at the supraumbilical fold using a Veress needle and this was confirmed with a saline drop test. An 8 mm trocar was inserted using direct visualization with a laparoscope and an Optiview port. 2 additional 8 mm robotic trocars were inserted at the right and left upper quadrants using direct visualization. A 5 mm laparoscopic trocar site was inserted at the far right upper quadrant. CO2 insufflation was initiated and pneumoperitoneum was established to a goal pressure of 15 mmHg. The OR table was positioned in reverse Trendelenburg. The robot was deployed, docked, instruments were loaded and targeted. At the console, the gallbladder was identified in the right upper quadrant. Adhesions to the omentum were lysed. The gallbladder was retracted superiorly at the fundus and inferiorly at the infundibulum. The cystic triangle was dissected to expose the cystic artery and cystic duct which was very narrow. Each of these structures was ligated using 2 Hem-o-yannick clips proximally and 1 distally. Each structure was then transected using the cutting on the energy device. The gallbladder was cauterized from the liver bed. Bleeding along the way was controlled using cautery. The gallbladder was placed in an Endo Catch bag and removed from the right upper quadrant 8 mm trocar site. The liver bed was checked multiple times for hemostasis and hemostasis was controlled using cautery. The instruments were removed, the robot was undocked and cleared away from the patient. CO2 insufflation was discontinued and excess pneumoperitoneum was evacuated. The OR table was returned to the neutral position. The trocars were removed. The skin incisions were approximated using 4-0 Vicryl suture. The abdomen was wiped clean with a saline soaked lap pad and dried. The skin incisions were further sealed using Dermabond. Anesthesia was discontinued and a secure airway was removed. The patient tolerated the procedure well. She was awakened from anesthesia and transferred to recovery in stable condition. I attest to the content of the Intraoperative Record and any orders documented therein. Any exceptions are noted below.
[2024-12-07] MEDS ORDERED: HYDROmorphone INJ 0.5 MG/0.5 ML SYR IV PRN ×2 (11:39)
[2024-12-07] MEDS ORDERED: ONDANSETRON INJ 2 MG/ML 2 ML VIAL IV PRN (11:39)
[2024-12-07] MEDS ORDERED: ePHEDrine sulfate 50 MG/5 ML SYR ONE (12:22)
--- NOTE | 2024-12-07 13:49 | Anesthesiology Progress Note ---
Date of Service December 07, 2024 Anesthesia Post Procedure Vital Signs Vital Signs: Temp Pulse Pulse Resp BP Pulse Ox O2 Del Method 12/07/24 13:35 36.4 C L 78 16 150/99 H 95 Nasal Cannula 12/07/24 13:05 36.4 C L 73 16 144/95 H 95 Nasal Cannula 12/07/24 12:35 36.4 C L 78 16 170/96 H 92 Nasal Cannula 12/07/24 12:20 36.5 C 79 16 141/91 H 93 Nasal Cannula 12/07/24 12:10 78 16 151/100 H 95 Oxymask 12/07/24 12:00 82 18 170/95 H 95 Oxymask 12/07/24 11:50 77 16 151/106 H 95 Oxymask 12/07/24 11:42 36.4 C L 74 12 154/99 H 90 Oxymask 12/07/24 09:16 36.8 C 85 20 177/90 H 96 Room Air O2 Flow Rate 12/07/24 13:35 1 12/07/24 13:05 2 12/07/24 12:35 2 12/07/24 12:20 3 12/07/24 12:10 4 12/07/24 12:00 8 12/07/24 11:50 10 12/07/24 11:42 4 12/07/24 09:16 Pain Intensity Abdomen: Pain Intensity: 5 Transfer of Care Handoff Completed per policy Notes Mental Status: alert / awake / arousable and participated in evaluation Patient Amnestic to Procedure: Yes Nausea / Vomiting: adequately controlled Pain: adequately controlled Airway Patency, RR, SpO2: stable & adequate BP & HR: stable & adequate Hydration State: stable & adequate Anesthetic Complications: no major complications apparent and Pt Satisfied with anesthetic care
[2024-12-07] MEDS: IPRATROPIUM BROMIDE NEB SOLN 0.02% 0.5MG/2.5ML VIAL INH PRN (14:20)
[2024-12-07] MEDS: ACETAMINOPHEN 500 MG TAB PO STA (15:37)
[2024-12-07] MEDS ORDERED: ACETAMINOPHEN 1,000 MG/100 ML VIAL IV PRN (15:57)
[2024-12-07] MEDS ORDERED: ALBUTEROL HFA 8 GM INHALER INH PRN (18:26)
[2024-12-07] MEDS: SODIUM CHLORIDE 0.9% 1,000 ML IV SCH (18:39)
--- NOTE | 2024-12-07 20:46 | XRay Report ---
Chest radiograph, one view History: Chest pain Comparison: None Findings: Single AP view of the chest performed. Low lung volumes. No focal consolidation or pleural effusion. No pneumothorax. The cardiomediastinal silhouette is within normal limits. Normal pulmonary vascularity. No evidence for lymphadenopathy. No visualized bony or soft tissue abnormality. Impression: Normal chest radiograph Electronically signed by Antelmo Hawkins 12-07-2024 8:45 PM
[2024-12-07] MEDS: FAMOTIDINE 20 MG TAB PO SCH (22:50)
[2024-12-07] MEDS: ACETAMINOPHEN 325 MG TAB PO PRN (22:50)
[2024-12-07 22:57] VITALS: TEMP 98.2
[2024-12-08] MEDS: LEVOTHYROXINE SODIUM 88 MCG TABLET PO SCH (05:47)
[2024-12-08] MEDS ORDERED: ALBUT/IPRATROP 3MG/0.5MG NEB 3 ML VIAL NEB PRN (07:00)
--- NOTE | 2024-12-08 07:12 | Hospitalist Consultation ---
Date of Consultation December 08, 2024 Assessment & Plan (1) Dyspnea: (2) Adenomyomatosis of gallbladder: Plan 54 F with mild post op hypoxia after cholecystectomy, has history of lung disease and lung resection. Likely available for discharge. HIstory of COPD, tobacco abuse, previous left upper lobe lobectomy for hamartoma, JANINA, gerd with barretts esophagus. Pt typically sees Dr Hurd in [facility] Reviewed op report reviewed anesthesia reviewed chest x-ray reviewed two-step ambulatory oxygen test. transient post op hypoxia likely multifactorial, cxr with poor inspiratory effort, likely impacted by anesthesia and possible intraperitoneal insufflation impacting diaphragmatic excursion. History of Present Illness Attending Physician: Palmira Lowry DO History of Present Illness 54 F who underwent Robotic assisted laproscopic cholecystectomy 12/07/24 was found to be hyoxic on room air and kept overnight, she sees pulmonary medicine and has previous history of tobacco abuse status post left upper lobectomy for hamartoma with emphysematous changes identified on CT scan. Post op film have poor insipriatory effort likley from some post op abdominal pain and possibly insufflation for surgery. She has done well overnight and improved hypoxia Patient was in the room with her she is doing well agreeable to going home. She has good excursion on pulmonary examination she is good with a ambulatory oxygen test, and I am comfortable with her leaving Allergies Allergy/AdvReac Type Severity Reaction Status Date / Time albuterol AdvReac Intermediate sore throat Verified 12/07/24 22:33 Home Medications Medication Instructions Recorded Confirmed Type losartan 50 mg tablet 50 mg PO QAM 12/12/21 12/07/24 History pantoprazole 40 mg tablet,delayed 40 mg PO BID 12/12/21 12/07/24 History release hydrochlorothiazide 25 mg tablet 25 mg PO QAM 04/04/23 12/07/24 History levothyroxine 112 mcg tablet 88 mcg PO QAM 02/11/24 12/07/24 History famotidine 20 mg tablet 20 mg PO BID 11/18/24 12/07/24 History tiotropium 2.5 mcg-olodaterol 2.5 2 puff inhalation QAM 11/18/24 12/07/24 History mcg/actuation mist for inhalation (Stiolto Respimat) albuterol sulfate 90 mcg/actuation 2 puff inhalation QID PRN sob 12/01/24 12/07/24 History aerosol inhaler hydroxyzine HCl 25 mg tablet 25 mg PO HS PRN Rash 12/01/24 12/07/24 History oxycodone 5 mg tablet 5 mg PO Q6H PRN pain #12 tabs 12/07/24 Rx Patient History Medical History Chronic idiopathic urticaria - Gets mild diffuse rash after surgeries (usually 10 days after surgery) per patient (denies any swelling or airway issues) - Seen by allergy 05/30/23- feels surgery is not an unusual trigger- could be trigged by immune stimulation, pain medications or combination- assistant curator prescribed hydroxyzine to take preop and post op Adenomyomatosis of gallbladder Hx of thyroiditis Osteoporosis 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 Centrilobular emphysema Osteoarthritis Hypertension Rey esophagus GERD (gastroesophageal reflux disease) Hypothyroidism on medication Migraine occasional Chronic obstructive pulmonary disease uses daily and rescue inhalers; follows with [facility] pulm Surgical History (Updated 12/07/24 @ 15:58 by Seema Cadena, MIGUEL) Hx laparoscopic cholecystectomy (12/07/24) Robotic Assisted Laparoscopic Cholecystectomy(Not Applicable) - Palmira Lowry DO S/P lumpectomy, right breast (04/25/23) Right Breast Partial Mastectomy with Localization Using [employer](Right) - Palmira Lowry DO H/O hand surgery 2020 R 4th and 5th prox phalanx fx; LMA#4 without issue H/O hernia repair (03/13/19) Open Recurrent Ventral Hernia Repair with Mesh Dr. Chaidez 03-13-19. Pt made ASA 3. LMA #4 at [facility]. no issues. History of anesthesia reaction "SLOW TO WAKE UP"; no hx of extended hospital stay History of laparoscopy WITH LASER FOR ENDOMETRIOSIS History of hysterectomy TOTAL History of lobectomy of lung LEFT UPPER LOBE FOR NODULE-BENIGN History of herniorrhaphy History of esophagogastroduodenoscopy (EGD) Family History Sister Family history of diabetes mellitus Diabetes Mother Family history of diabetes mellitus Diabetes Hypertension Grandmother (Paternal) Family hx of colon cancer Aunt Breast cancer Cancer Grandmother Cancer Colorectal cancer Diabetes Father Hypertension Stroke Social History Smoking Status: Former smoker Tobacco Type: Cigarettes Age Started Using Tobacco: 11; Age Quit Using Tobacco: 45; packs per day: 1.5; Second Hand Exposure: No; Do You Dip or Chew Tobacco: No; Hx Alcohol Use: Yes Alcohol type: hard liquor Hx Substance Use: No Preferred Language: Slovenian Communication Ability: Effective Visual Impairment: No Limitations Food Service Helper Required: No Beliefs That Will Affect Care: None marital status: Current Living Situation: Spouse Current Living Situation Comment: Lives with and daughter current occupational status: employed How many Children do You have: 2 Feels Safe at Home: Yes Diet: regular during the past year weight has: remained stable Assistive Devices: None Physical Exam Physical Exam: The patient appeared well nourished and normally developed. Vital signs as documented. Head exam is normocephalic atraumatic Neck is without JVD, thyromegaly, or carotid bruits. Lungs are clear to auscultation, no focal loss of breath sounds Cardiac exam, Rhythm is regular.. No murmurs, rubs or gallops. Abdominal exam reveals normal bowel sounds, soft mildly tender, no masses Extremities are nonedematous and both pedal pulses are present Neurologic exam is alert and oriented, no focal loss of strength or sensation Skin is without bruises or rashes Psychologically is without concerns for anxiety or depression.. Results & Data Results & Data Vital Signs (Past 12 Hours) Vital Signs Temp Pulse Resp BP Pulse Ox O2 Del Method O2 Flow Rate 12/08/24 05:48 88 92 Room Air 12/07/24 22:56 98.2 F 94 H 14 136/83 94 Nasal Cannula 2 12/07/24 22:50 Nasal Cannula 1 PG Care Time/CCT Total # of Minutes Spent Total Time Spent with Patient: Total time spent is greater than 50% in coordination of care (as documented) at patient's floor/unit and/or counseling patient: Coding Level of Care Code 71878 IN/OBS CONSULT LVL 3,45M Diagnoses Dyspnea R06.00 Adenomyomatosis of gallbladder D13.5
[2024-12-08] MEDS: UMECLIDINIUM/VILANTEROL 62.5/25MCG 7 PUFFS/INHALER INH SCH (07:30)
[2024-12-08 07:42] VITALS: RESP 18
[2024-12-08] MEDS: LOSARTAN POTASSIUM 50 MG TAB PO SCH (08:30)
[2024-12-08] MEDS: hydroCHLOROthiazide 25 MG TAB PO SCH (08:30)
[2024-12-08 08:31] VITALS: BP 152/88; PULSE 90; O2SAT 92
--- NOTE | 2024-12-08 10:17 | Surgery Progress Note ---
Date of Service December 08, 2024 Assessment & Plan (1) Adenomyomatosis of gallbladder: Plan: POD#1 robotic cholecystectomy vitals stable on room air medicine following appreciate their assistance, 2 step performed today and patient does not require O2 for home from post op perspective she is doing well. pain controlled. tolerating a diet no n/v dispo instructions reviewed, stable for discharge to home f/u with dr gerber in 1-2 weeks Admission and Anticipated Discharge Date Admission Date: December 07, 2024 Subjective Patient feels well. Pain controlled. Tolerating a diet. no n/v. on room air without issues. Physical Exam Physical Exam: awake/alert, no distress Respiratory: normal respiratory effort on room air Gastrointestinal (Abdomen): Inspection/Auscultation: + abdominal surgical incision (c/d/i with dermabond) Percussion/Palpation: abdomen soft; abdomen nontender Results & Data Vital Signs (Past 12 Hours) Vital Signs Temp Pulse Pulse Pulse Resp Resp Resp 12/08/24 08:30 90 18 12/08/24 07:41 107 H 97 H 20 18 12/08/24 07:20 12/08/24 06:53 98.2 F 82 18 12/08/24 05:48 88 12/07/24 22:56 98.2 F 94 H 14 12/07/24 22:50 BP Pulse Ox Pulse Ox Pulse Ox O2 Del Method O2 Flow Rate 12/08/24 08:30 152/88 H 92 Room Air 12/08/24 07:41 90 93 12/08/24 07:20 Room Air 12/08/24 06:53 144/81 H 93 Room Air 12/08/24 05:48 92 Room Air 12/07/24 22:56 136/83 94 Nasal Cannula 2 12/07/24 22:50 Nasal Cannula 1 PG Care Time/CCT Total # of Minutes Spent Total Time Spent with Patient: Total time spent is greater than 50% in coordination of care (as documented) at patient's floor/unit and/or counseling patient: Coding Level of Care Code 60279 Post Operative Follow-Up Diagnoses Adenomyomatosis of gallbladder D13.5
== END 2024-12-08 11:03 | disposition home or self-care (01) ==
LOC: 3W 09:04 → ASU 09:04